=== PATIENT | male | born 1955 | race Caucasian/White ===

== ENCOUNTER 2021-06-05 09:44 | Observation (INO) ==
[~2021-06-05 09:44] MED LIST: Buffered Lidocaine 1% SYRIN 1 ml INTRADERM ONE; Lactated Ringers 1000 ml BAG 1,000 ML IV SCH; Lidocaine 1% MPF 5 ML VIAL ONE; ceFAZolin 1 GM ADVAN 1 GM ADDV.VIAL IVPB ONE
[2021-06-05] MEDS ORDERED: Dexamethasone IV 4 MG/ML VIAL 1 ml VIAL ONE ×2 (09:52)
[2021-06-05] MEDS ORDERED: Bupivacaine 0.5% SDV PF 30ML VIAL ONE (09:52)
[2021-06-05] MEDS ORDERED: Midazolam 2 mg/2 ml VIAL 1 mg/ml 2 ml VIAL (2 mg) ONE (09:52)
[2021-06-05] MEDS ORDERED: Lidocaine 2% PF 5 ML VIAL ONE (09:52)
[2021-06-05] MEDS ORDERED: Ondansetron 4 mg VIAL 2 MG/ML 2 ml VIAL ONE (09:52)
[2021-06-05] MEDS ORDERED: Propofol 10 MG/ML 20 ML BTL ONE ×4 (09:52→14:05)
[2021-06-05] MEDS ORDERED: fentaNYL 100 mcg/2 ml 50 MCG/ML VIAL ONE (09:53)
[2021-06-05] MEDS ORDERED: HYDROmorphone 1 MG/1 ML SYRINGE IV PRN (10:09)
[2021-06-05] MEDS ORDERED: Naloxone 0.4 mg VIAL 0.4 mg/ml 1 ml VIAL IV PRN (10:09)
[2021-06-05] MEDS ORDERED: Ondansetron 4 mg VIAL 2 MG/ML 2 ml VIAL IV PRN ×2 (10:09→12:46)
[2021-06-05] MEDS ORDERED: DiMENhydriNATE IV 50 mg/ml 1 ml VIAL IV PUSH PRN (10:09)
[2021-06-05] MEDS ORDERED: diPHENhydraMINE IV 50 MG/ML 1 ml VIAL (BENADRYL) IV PRN ×2 (10:09→12:46)
[2021-06-05] MEDS ORDERED: Ropivacaine 5 MG/ML 20 ML VIAL 0.5% (100 MG) ONE (11:47)
[2021-06-05] MEDS ORDERED: Acetaminophen IV 1 GM/100ML 100 ML IV ONE (12:25)
[2021-06-05] MEDS ORDERED: Lactulose 30 ml UDC PO PRN (12:46)
[2021-06-05] MEDS ORDERED: diPHENhydraMINE 25 mg TAB PO PRN (12:46)
[2021-06-05] MEDS ORDERED: Morphine 2 MG/ML SYRINGE IV PRN (12:46)
[2021-06-05] MEDS ORDERED: Ondansetron ODT 4 mg TAB 4 MG TAB PO PRN (12:46)
[2021-06-05] MEDS ORDERED: Magnesium Hydroxide LIQ 30 ML UDC PO PRN (12:46)
[2021-06-05] MEDS ORDERED: Phenylephrine IV 10 MG/ML 1 ml VIAL ONE (13:04)
[2021-06-05] MEDS: Lactated Ringers 1000 ml BAG 1,000 ML IV SCH (15:33)
[2021-06-05] MEDS: ceFAZolin 1 GM ADVAN 1 GM in NS 0.9% 50 ML 50 ML IVPB SCH (20:54)
[2021-06-05] MEDS: Magnesium Hydroxide LIQ 30 ML UDC PO SCH (20:55)
[2021-06-06] MEDS: Lactated Ringers 1000 ml BAG 1,000 ML IV SCH (02:52)
[2021-06-06] MEDS: ceFAZolin 1 GM ADVAN 1 GM in NS 0.9% 50 ML 50 ML IVPB SCH ×2 (04:34→11:40)
[2021-06-06 05:26] LABS: Hematocrit 32 % (42-52); Hemoglobin 10.9 g/dL (14.0-18.0); Mean Platelet Volume 7.8 fL (7.4-10.4); Platelet Count 266 10^3/uL (150-450)
[2021-06-06 05:40] LABS: Calcium 8.8 mg/dL (8.6-10.3); Potassium 4.2 mmol/L (3.5-5.0); eGFR CKD-EPI 78.3 (>60)
[2021-06-06 08:09] VITALS: BP 118/66
[2021-06-06] MEDS: Magnesium Hydroxide LIQ 30 ML UDC PO SCH (08:10)
[2021-06-06] MEDS ORDERED: Vitamin THERAPEUTIC TAB PO SCH (09:00)
== END 2021-06-06 13:44 | disposition home or self-care (01) ==
LOC: SSU 09:44 → OR 09:44
PROVIDERS: ADMIT Orthopaedic Surgery Adult Reconstructive Orthopaedic Surgery; ATTEND Orthopaedic Surgery Adult Reconstructive Orthopaedic Surgery